=== PATIENT | female | born 1955 | race Caucasian/White ===

== ENCOUNTER 2018-02-09 10:28 | Emergency (ER) | payer OTHER, BC ==
[~2018-02-09] VITALS: Ht 172.7 cm; Wt 82.7 kg
[~2018-02-09 10:28] MED LIST: 5-HTP PO; ACETAMIN325 MG PO; AMOXICILLIN500 MG PO; AMOXICILLIN875 MG PO; ASPIRIN 81 LOW81 MG PO; AUGMENTIN875TAB PO; ESTROGEL; FLONASE NASAL50 MCG; FLU; IBUPROFEN; LORTAB 5/325 PO; MOTRIN800 MG PO; MUCINEX600 MG PO; NAPROSYN250 MG PO; PROBIOTI1 PO; PROBIOTIC1 TAB PO; RESTORIL15 MG PO; TESSALON PER100 MG PO; TESSALON200 MG PO; VENLAFAXINE75 M2 PO; [UNRECOGNIZED DRUG - OTHER]; [UNRECOGNIZED DRUG - OTHER]; [UNRECOGNIZED DRUG - OTHER] PO
[2018-02-09] MEDS ORDERED: ZOLOFT50 MG PO (11:01)
[2018-02-09 11:03] VITALS: BP 138/84
[2018-02-09] MEDS ORDERED: MOTRIN800 MG PO (11:11)
[2018-02-09] MEDS ORDERED: FLEXERIL PO (11:11)
== END 2018-02-09 11:20 | disposition home or self-care (01) | DRG 605 ==
LOC: ED 10:28
DX: S80.212A Abrasion, left knee, initial encounter (principal); M79.641 Pain in right hand; M79.642 Pain in left hand; W01.0XXA Fall on same level from slipping, tripping and stumbling without subsequent striking against object, initial encounter; Y93.79 Activity, other specified sports and athletics; Y92.211 Elementary school as the place of occurrence of the external cause; Y99.0 Civilian activity done for income or pay

== ENCOUNTER 2024-04-18 19:01 | Emergency (ER) | payer MEDICARE ==
[2024-04-18] VITALS (8 sets, daily range): BP systolic 116–152; BP diastolic 64–90
[~2024-04-18] VITALS: Ht 172.7 cm; Wt 90.0 kg
[~2024-04-18 19:01] MED LIST changes: +FLEXERIL PO; +ZOLOFT50 MG PO
[2024-04-18] MEDS ORDERED: ASPIRIN 81 MG/TAB PO ONE (19:15)
[2024-04-18 19:33] LABS: BASO% 0.7 % (0-3); EOS% 5.6 % (0-8); HEMATOCRIT 41.9 % (37.0-47.0); HEMOGLOBIN 13.7 g/dl (12.0-16.0); IMMATURE GRANULOCYTES 0.2 % (0.0-5.0); LYMPH% 31.3 % (15-41); MEAN CELL VOLUME 92.5 fL CALC (80.0-100.0); MEAN CORPUSCULAR HGB 30.2 pG CALC (26.0-32.0); MEAN CORPUSCULAR HGB CONC 32.7 g/dL CAL (32.0-36.0); MONO% 9.1 % (2-13); NEUT# 3.04 thou/uL (2.00-7.15); NEUT% 53.1 % (42-76); RED BLOOD COUNT 4.53 mill/uL (4.20-5.60); RED CELL DISTRI WIDTH 12.1 % (11.5-15.5)
[2024-04-18 19:43] LABS: AMYLASE 47 u/l (30-110); BUN 18 mg/dL (8-23); BUN/CREATININE RATIO 18 (12-20 (CALC)); CARBON DIOXIDE 23 mmol/l (22-30); ESTIMATED GFR 62 ML/MIN (>=90 (CALC)); SGOT/AST 30 u/l (9-36)
[2024-04-18 19:48] LABS: ALBUMIN 4.4 g/dL (3.2-5.0); ALKALINE PHOSPHATASE 91 u/l (38-126); LIPASE 58 u/l (23-300); TOTAL PROTEIN 7.5 g/dL (6.3-8.2)
[2024-04-18] MEDS ORDERED: OMEPRAZOLE DR40 MG PO (19:53)
[2024-04-18 19:55] LABS: D-DIMER 0.42 mg/L (0.19-0.60)
[2024-04-18 20:04] LABS: ANION GAP 9 (6-22 (CALC)); BILIRUBIN, TOTAL 0.3 mg/dL (0.02-1.3); CHLORIDE 112 mmol/l (95-108); SODIUM 140 mmol/l (137-146)
[2024-04-18] MEDS ORDERED: NITROGLYCERIN 0.4 MG/TAB SL ONE (20:10)
[2024-04-18 20:40] LABS: ACT PARTIAL THROMBO TIME 21.9 SECONDS (20.0-32.5)
[2024-04-18 20:41] LABS: PROTHROMBIN TIME 9.3 SECONDS (9.0-12.5)
[2024-04-18] MEDS ORDERED: DICYCLOMINE HCL 20 MG/2 ML VIAL IM ONE (21:20)
[2024-04-18] MEDS ORDERED: FAMOTIDINE 10MG/ML 2ML SDV IV ONE (21:20)
[2024-04-18 21:37] LABS: URINE BILIRUBIN - DIPSTICK Negative (NEGATIVE); URINE BLOOD DIPSTICK Negative (NEGATIVE); URINE COLOR Yellow; URINE GLUCOSE - DIPSTICK Negative (NEGATIVE); URINE KETONE 15 mg/dL (NEGATIVE); URINE LEUK ESTERASE Trace (NEGATIVE); URINE NITRITE - DIPSTICK Negative (Negative); URINE PH 5.5 (4.5-8.0); URINE PROTEIN - DIPSTICK Negative (NEG-TRACE); URINE SPECIFIC GRAVITY >=1.030; URINE UROBILINOGEN - DIPSTICK 0.2 E.U./dL (0.2)
== END 2024-04-18 23:41 | disposition home or self-care (01) ==
LOC: ED 19:01
PROVIDERS: Emergency Medicine
DX: R10.9 Unspecified abdominal pain (principal); R07.9 Chest pain, unspecified; F32.A Depression, unspecified; K21.9 Gastro-esophageal reflux disease without esophagitis; Z90.49 Acquired absence of other specified parts of digestive tract; Z90.710 Acquired absence of both cervix and uterus
CPT/HCPCS: Q9967